=== PATIENT | female | born 1980 | race African-American/Black ===

== ENCOUNTER 2016-08-10 23:56 | Emergency (ER) | payer MEDICAID ==
--- NOTE | 2016-08-11 02:18 | ER Document Report ---
ED Flu Like - General Chief Complaint: Flu Symptoms Stated Complaint: SORE THROAT Mode of Arrival: Ambulatory Information source: Patient Notes: Pt is a 35 year old female who presents to the ER today for flu like symptoms with sore throat, fever, chills, headache, cough, congestion and body aches, nausea and vomiting for 3 days. Patient states that all of it hit her once. She denies any diarrhea. She states that the sore throat is her worst symptom. TRAVEL OUTSIDE OF THE [place] IN LAST 30 DAYS: No - Related Data Allergies/Adverse Reactions: latex [Latex] Allergy (Verified 10/16/15 15:17) thimerosal [Thimerosal] Allergy (Verified 10/16/15 15:17) promethazine HCl [From Phenergan] Adverse Reaction (Intermediate, Verified 01/08 07:38) Anger Past Medical History - General Information source: Patient - Social History Smoking Status: Former Smoker Chew tobacco use (# tins/day): No Frequency of alcohol use: Occasional Drug Abuse: None Family History: Reviewed & Not Pertinent, CVA, DM, Hypertension, Malignancy Patient has suicidal ideation: No Patient has homicidal ideation: No Renal/ Medical History: Denies: Hx Peritoneal Dialysis Musculoskeltal Medical History: Reports Hx Musculoskeletal Trauma Psychiatric Medical History: Reports: Hx Bipolar Disorder, Hx Depression Traumatic Medical History: Reports: Hx Fractures - finger Past Surgical History: Reports: Hx Appendectomy - 2001, Hx Section, Hx Gynecologic Surgery - ESure November 2008, Hx Tubal Ligation - Immunizations Immunizations up to date: Yes Hx Diphtheria, Pertussis, Tetanus Vaccination: Yes Review of Systems - Review of Systems Constitutional: See HPI EENT: See HPI Cardiovascular: No symptoms reported Respiratory: See HPI Gastrointestinal: See HPI Genitourinary: No symptoms reported Female Genitourinary: No symptoms reported Musculoskeletal: See HPI Skin: No symptoms reported Hematologic/Lymphatic: No symptoms reported Neurological/Psychological: No symptoms reported Physical Exam - Vital signs Vitals: Temp Pulse BP Pulse Ox 100.0 F 98 114/60 98 08/11/16 00:05 08/11/16 00:05 08/11/16 00:05 08/11/16 00:05 - Notes Notes: PHYSICAL EXAMINATION: GENERAL: Mildly ill-appearing, wearing mask, in no acute distress. HEAD: Atraumatic, normocephalic. EYES: Pupils equal round and reactive to light, extraocular movements intact, sclera anicteric, conjunctiva are normal. ENT: ear canals without erythema or foreign body, TMs pearly wong with good bony landmarks, nares with mucoid discharge, oropharynx erythematous without enlarged tonsils without exudates. Moist mucous membranes. NECK: Normal range of motion, supple without lymphadenopathy LUNGS: CTAB and equal. No wheezes rales or rhonchi. HEART: Regular rate and rhythm without murmurs ABDOMEN: Soft, no tenderness. No guarding, no rebound EXTREMITIES: Normal range of motion, no pitting edema. No cyanosis. NEUROLOGICAL: Cranial nerves grossly intact. Normal sensory/motor exams. PSYCH: Normal mood, normal affect. SKIN: Warm, Dry, normal turgor, no rashes or lesions noted Course - Re-evaluation Re-evalutation: 08/11/16 03:04 Influenza and strep were negative today. Patient likely has viral syndrome, I will treat her symptomatically. - Vital Signs Vital signs: Temp Pulse Resp BP Pulse Ox 99.3 F 92 20 103/62 100 08/11/16 00:45 08/11/16 00:45 08/11/16 00:45 08/11/16 00:45 08/11/16 00:45 Discharge - Discharge Clinical Impression: Viral syndrome, URI with cough and congestion Nausea and vomiting Qualifiers: Vomiting type: unspecified Vomiting Intractability: non-intractable Qualified Code(s): R11.2 - Nausea with vomiting, unspecified Condition: Stable Disposition: HOME, SELF-CARE Additional Instructions: Patient plenty of fluids! Return immediately for any new or worsening symptoms. Follow up with primary care provider, call tomorrow to make followup appointment. Prescriptions: Hydrocodone Bit/Homatropine [Hycodan Syrup 5-1.5 mg/5 ml Ud Cup] 5 ml PO Q4HP PRN #120 ml PRN Reason: Fluticasone Propionate [Flonase Nasal [place] 50 Mcg/[place] 16 gm] 2 sprays NASL Q12 #1 inhaler Ibuprofen [Motrin 800 mg Tablet] 800 mg PO Q8H PRN #30 tab PRN Reason: Nystatin/Dexameth/Diphen [Magic Mouthwash (Omh Formula) Susp] 5 ml PO QID #120 ml Ondansetron [Zofran Odt 4 mg Tablet] 1 - 2 tab PO Q4H PRN #30 tab.rapdis PRN Reason: For Nausea/Vomiting Forms: Return to Work
[2016-08-11] MEDS ORDERED: IBUPROFEN 800 MG TABLET PO ONE (03:06)
[2016-08-11] MEDS ORDERED: GUAIFENESIN/D-METHORPHAN (200-20 MG) SYRUP 10 ML PO ONE (03:06)
[2016-08-11 03:32] VITALS: BP 120/65
== END 2016-08-11 03:31 | disposition home or self-care (01) ==
LOC: ER 23:56
DX: J06.9 Acute upper respiratory infection, unspecified (principal); R05 Cough; B34.9 Viral infection, unspecified; J02.9 Acute pharyngitis, unspecified; R50.9 Fever, unspecified; J34.89 Other specified disorders of nose and nasal sinuses; R51 Headache; R11.2 Nausea with vomiting, unspecified; Z91.040 Latex allergy status; Z88.8 Allergy status to other drugs, medicaments and biological substances; Z87.891 Personal history of nicotine dependence
CPT/HCPCS: 87070; 87804; 87880; 99283

== ENCOUNTER 2017-05-15 02:29 | Emergency (ER) | payer MEDICAID ==
[2017-05-15] MEDS ORDERED: ASPIRIN 81 MG TABLET, CHEWABLE PO ONE (03:10)
[2017-05-15] MEDS ORDERED: NORMAL SALINE 1000 ML 1,000 ML IV ONE (03:11)
--- NOTE | 2017-05-15 03:13 | ER Document Report ---
ED Cardiac - General Chief Complaint: anxious Stated Complaint: RAPID HEART RATE Time Seen by Provider: 05/15/17 03:03 Mode of Arrival: Ambulatory Information source: Patient Notes: Patient presents complaining of feeling like her heart is racing that started around 1030 this evening. Patient complains of some chest tightness. Patient denies any cough, fever or recent illness. Patient denies any urinary symptoms , nausea, vomiting or diarrhea. Patient does complain of mild headache pain. Patient denies any recent travel, bedrest remobilization. Patient denies any new medications or [id number] medications. TRAVEL OUTSIDE OF THE [place] IN LAST 30 DAYS: No - HPI Patient complains to provider of: Chest tightness, Palpitations Is the pain a: New problem Quality of pain: Tightness Pain level currently: 2 Chest pain precipitating factors: At Rest Cardiac risk factors: Smoker. denies: Diabetes, Hypertension, Hx ME Positive cardiac history: No Associated symptoms: Headache, Palpitations. denies: Abdominal pain, Back pain Exacerbated by: Denies Relieved by: Nothing Similar symptoms previously: No Recently seen / treated by doctor: No - Related Data Allergies/Adverse Reactions: latex [Latex] Allergy (Verified 10/16/15 15:17) thimerosal [Thimerosal] Allergy (Verified 10/16/15 15:17) promethazine HCl [From Phenergan] Adverse Reaction (Intermediate, Verified 01/08 07:38) Anger Past Medical History - General Information source: Patient - Social History Smoking Status: Current Some Day Smoker Frequency of alcohol use: Occasional Drug Abuse: Marijuana Occupation: [employer] Family History: Reviewed & Not Pertinent, CVA, DM, Hypertension, Malignancy Patient has suicidal ideation: No Patient has homicidal ideation: No Renal/ Medical History: Denies: Hx Peritoneal Dialysis Musculoskeltal Medical History: Reports Hx Musculoskeletal Trauma Psychiatric Medical History: Reports: Hx Bipolar Disorder, Hx Depression Traumatic Medical History: Reports: Hx Fractures - finger Past Surgical History: Reports: Hx Appendectomy - 2001, Hx Section, Hx Gynecologic Surgery - ESure November 2008, Hx Tubal Ligation - Immunizations Immunizations up to date: Yes Hx Diphtheria, Pertussis, Tetanus Vaccination: Yes Review of Systems - Review of Systems Constitutional: No symptoms reported. denies: Fever, Recent illness EENT: No symptoms reported Cardiovascular: Chest pain, Palpitations Respiratory: No symptoms reported. denies: Cough, Short of breath Gastrointestinal: No symptoms reported. denies: Abdominal pain, Diarrhea, Nausea, Vomiting Genitourinary: No symptoms reported. denies: Dysuria, Flank pain Female Genitourinary: No symptoms reported. denies: Musculoskeletal: No symptoms reported. denies: Back pain Skin: No symptoms reported Hematologic/Lymphatic: No symptoms reported Neurological/Psychological: Headaches Physical Exam - Vital signs Vitals: Temp Pulse Resp BP Pulse Ox 98.7 F 118 H 24 H 158/88 H 100 05/15/17 02:42 05/15/17 02:42 05/15/17 02:42 05/15/17 02:42 05/15/17 02:42 - General General appearance: Alert, Anxious In distress: None - HEENT Head: Normocephalic, Atraumatic Eyes: Normal Conjunctiva: Normal Nasal: Normal Mouth/Lips: Normal Mucous membranes: Normal Pharynx: Normal Neck: Normal, Supple. No: Lymphadenopathy, Thyromegally - Respiratory Respiratory status: No respiratory distress Chest status: Tender Breath sounds: Normal Chest palpation: Tender - Cardiovascular Rhythm: Tachycardia Heart sounds: S1 appreciated, S2 appreciated Murmur: No - Abdominal Inspection: Normal Distension: No distension Tenderness: Nontender - Back Back: Normal, Nontender. No: CVA tenderness, Vertebra tenderness - Extremities General upper extremity: Normal inspection, Nontender, Normal ROM General lower extremity: Normal inspection, Nontender, Normal ROM - Neurological Neuro grossly intact: Yes Cognition: Normal [place] Coma Scale Eye Opening: Spontaneous [place] Coma Scale Verbal: Oriented [place] Coma Scale Motor: Obeys Commands [place] Coma Scale Total: 15 - Psychological Associated symptoms: Anxious - Skin Skin Temperature: Warm Skin Moisture: Dry Skin Color: Normal Course - Re-evaluation Re-evalutation: 05/15/17 04:20 Patient reports that chest tightness symptoms have resolved. Patient tachycardia resolved as well. Patient does continue to complain of mild headache, medication ordered. 05/15/17 05:20 Patient's heart rate continues in the 70s. Patient denies any chest tightness or palpitations at this time. Patient also reports that headache pain has resolved as well. No concern for PE at this time as patient's tachycardia resolved, patient has not been hypoxic during visit. Patient is not on any exogenous hormones denies any history of PE or DVT in the past. Patient denies any recent travel, bedrest remobilization. Patient's initial presentation she had appeared very anxious, patient visibly more calm on exam. Suspect that patient's chest tightness and palpitation symptoms could be related to anxiety. The patient has atypical chest pain as the patient's chest pain is not suggestive of pulmonary embolus, cardiac ischemia, aortic dissection, or other serious etiology. Given the extremely low risk of these diagnoses for the test in evaluation for these possibilities does not appear to be indicated at this time. Patient has been instructed to return if the symptoms worsen or change in any way. HEART score 1 (risk factor-smoking). Consulted with Dr. Adams regarding patient presentation, reviewed patient's diagnostic test results as well as EKG, agrees with discharge plan of care. 05/15/17 05:23 - Vital Signs Vital signs: Temp Pulse Resp BP Pulse Ox 98.7 F 118 H 13 119/76 100 05/15/17 02:42 05/15/17 02:42 05/15/17 05:30 05/15/17 05:30 05/15/17 05:30 - Laboratory Result Diagrams: 05/15/17 03:29 05/15/17 03:29 Laboratory results interpreted by me: 05/15/17 05/15/17 03:29 03:29 Chloride 108 H Carbon Dioxide 21 L Urine Blood SMALL H Labs- Entire Visit 05/15/17 05/15/17 05/15/17 03:29 03:29 03:29 WBC 7.4 RBC 4.24 Hgb 13.7 Hct 39.8 MCV 94 MCH 32.3 MCHC 34.4 RDW 13.9 Plt Count 242 Seg Neutrophils % 53.9 Lymphocytes % 37.3 Monocytes % 7.6 Eosinophils % 0.4 Basophils % 0.8 Absolute Neutrophils 4.0 Absolute Lymphocytes 2.8 Absolute Monocytes 0.6 Absolute Eosinophils 0.0 Absolute Basophils 0.1 Sodium 143.9 Potassium 3.9 Chloride 108 H Carbon Dioxide 21 L Anion Gap 15 BUN 11 Creatinine 0.62 Est GFR ( Amer) > 60 Est GFR (Non-Af Amer) > 60 Glucose 95 Calcium 9.8 Magnesium 1.6 Total Bilirubin 0.3 Direct Bilirubin 0.2 Indirect Bilirubin Not Reportable Neonat Total Bilirubin Not Reportable AST 22 ALT 31 Alkaline Phosphatase 61 Creatine Kinase 36 CK-MB (CK-2) < 0.22 Troponin I < 0.012 Total Protein 7.1 Albumin 4.3 TSH Serum HCG, Qual Urine Color Urine Appearance Urine pH Ur Specific Ione Urine Protein Urine Glucose (UA) Urine Ketones Urine Blood Urine Nitrite Urine Bilirubin Urine Urobilinogen Ur Leukocyte Esterase Urine WBC (Auto) Urine RBC (Auto) Urine Bacteria (Auto) Squamous Epi Cells Auto Amorphous Sediment Auto Urine Mucus (Auto) Urine Ascorbic Acid Urine Opiates Screen Urine Methadone Screen Ur Barbiturates Screen Ur Phencyclidine Scrn Ur Amphetamines Screen U Benzodiazepines Scrn Urine Cocaine Screen U Marijuana (THC) Screen 05/15/17 05/15/17 05/15/17 03:29 03:29 03:29 WBC RBC Hgb Hct MCV MCH MCHC RDW Plt Count Seg Neutrophils % Lymphocytes % Monocytes % Eosinophils % Basophils % Absolute Neutrophils Absolute Lymphocytes Absolute Monocytes Absolute Eosinophils Absolute Basophils Sodium Potassium Chloride Carbon Dioxide Anion Gap BUN Creatinine Est GFR ( Amer) Est GFR (Non-Af Amer) Glucose Calcium Magnesium Total Bilirubin Direct Bilirubin Indirect Bilirubin Neonat Total Bilirubin AST ALT Alkaline Phosphatase Creatine Kinase CK-MB (CK-2) Troponin I Total Protein Albumin TSH 3.29 Serum HCG, Qual NEGATIVE Urine Color YELLOW Urine Appearance HAZY Urine pH 6.0 Ur Specific Ione 1.011 Urine Protein NEGATIVE Urine Glucose (UA) NEGATIVE Urine Ketones NEGATIVE Urine Blood SMALL H Urine Nitrite NEGATIVE Urine Bilirubin NEGATIVE Urine Urobilinogen NEGATIVE Ur Leukocyte Esterase NEGATIVE Urine WBC (Auto) 1 Urine RBC (Auto) 4 Urine Bacteria (Auto) TRACE Squamous Epi Cells Auto 2 Amorphous Sediment Auto TRACE Urine Mucus (Auto) RARE Urine Ascorbic Acid NEGATIVE Urine Opiates Screen Urine Methadone Screen Ur Barbiturates Screen Ur Phencyclidine Scrn Ur Amphetamines Screen U Benzodiazepines Scrn Urine Cocaine Screen U Marijuana (THC) Screen 05/15/17 03:29 WBC RBC Hgb Hct MCV MCH MCHC RDW Plt Count Seg Neutrophils % Lymphocytes % Monocytes % Eosinophils % Basophils % Absolute Neutrophils Absolute Lymphocytes Absolute Monocytes Absolute Eosinophils Absolute Basophils Sodium Potassium Chloride Carbon Dioxide Anion Gap BUN Creatinine Est GFR ( Amer) Est GFR (Non-Af Amer) Glucose Calcium Magnesium Total Bilirubin Direct Bilirubin Indirect Bilirubin Neonat Total Bilirubin AST ALT Alkaline Phosphatase Creatine Kinase CK-MB (CK-2) Troponin I Total Protein Albumin TSH Serum HCG, Qual Urine Color Urine Appearance Urine pH Ur Specific Ione Urine Protein Urine Glucose (UA) Urine Ketones Urine Blood Urine Nitrite Urine Bilirubin Urine Urobilinogen Ur Leukocyte Esterase Urine WBC (Auto) Urine RBC (Auto) Urine Bacteria (Auto) Squamous Epi Cells Auto Amorphous Sediment Auto Urine Mucus (Auto) Urine Ascorbic Acid Urine Opiates Screen NEGATIVE Urine Methadone Screen NEGATIVE Ur Barbiturates Screen NEGATIVE Ur Phencyclidine Scrn NEGATIVE Ur Amphetamines Screen NEGATIVE U Benzodiazepines Scrn NEGATIVE Urine Cocaine Screen NEGATIVE U Marijuana (THC) Screen UNCONFIRMED POSITIVE - Diagnostic Test Radiology reviewed: Reports reviewed Discharge - Discharge Clinical Impression: Palpitations, Chest tightness Headache Qualifiers: Headache type: unspecified Headache chronicity pattern: unspecified pattern Intractability: not intractable Qualified Code(s): R51 - Headache Condition: Stable Disposition: HOME, SELF-CARE Instructions: Chest Pain of Unclear Cause ([facility]), Headache ([facility]), Palpitations ( Irregular or Rapid Heartrate) ([facility]) Additional Instructions: Return immediately for any new or worsening symptoms Followup with your primary care provider, call tomorrow to make a followup appointment 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 Referrals: OCTAVIO RITTER, PROPERTY AND EQUIPMENT CLERK-C [Primary Care Provider] - Follow up tomorrow FARHANA COURTNEY MD [ACTIVE STAFF] - Follow up tomorrow
[2017-05-15 03:47] LABS: ABSOLUTE BASOPHILS # (AUTO) 0.1 10^3/uL (0.0-0.2); ABSOLUTE LYMPHOCYTES (AUTO) 2.8 10^3/uL (0.5-4.7); ABSOLUTE MONOCYTES (AUTO) 0.6 10^3/uL (0.1-1.4); BASOPHILS % (AUTO) 0.8 % (0-2); EOSINOPHILS % (AUTO) 0.4 % (0-6); HEMATOCRIT 39.8 % (36.0-47.0); HEMOGLOBIN 13.7 g/dL (12.0-15.5); HGB HCT DIFFERENCE 1.3; LYMPHOCYTES % (AUTO) 37.3 % (13-45); MEAN CORPUSCULAR HEMOGLOBIN 32.3 pg (27.0-33.4); MEAN CORPUSCULAR HGB CONC 34.4 g/dL (32.0-36.0); MEAN CORPUSCULAR VOLUME 94 fl (80-97); MONOCYTES % (AUTO) 7.6 % (3-13); RED BLOOD COUNT 4.24 10^6/uL (3.72-5.28); RED CELL DISTRIBUTION WIDTH 13.9 % (11.5-14.0); SEGMENTED NEUTROPHILS % (AUTO) 53.9 % (42-78); WHITE BLOOD COUNT 7.4 10^3/uL (4.0-10.5)
[2017-05-15 03:57] LABS: AMORPHOUS SEDIMENT,URINE TRACE /HPF; BILIRUBIN,URINE NEGATIVE (NEGATIVE); GLUCOSE, URINE NEGATIVE (NEGATIVE); KETONES,URINE NEGATIVE (NEGATIVE); LEUKOCYTE ESTERASE,URINE NEGATIVE (NEGATIVE); NITRITE,URINE NEGATIVE (NEGATIVE); PROTEIN,URINE NEGATIVE (NEGATIVE); URINE SPECIFIC GRAVITY 1.011; UROBILINOGEN,URINE NEGATIVE mg/dL (<2.0)
[2017-05-15 03:59] LABS: APPEARANCE,URINE HAZY
[2017-05-15 04:03] LABS: URINE BARBITURATES SCREEN NEGATIVE; URINE METHADONE SCREEN NEGATIVE; URINE OPIATES LOW NEGATIVE; URINE PHENCYCLIDINE SCREEN NEGATIVE
[2017-05-15 04:13] LABS: ALANINE AMINOTRANSFERASE 31 U/L (9-52); ALBUMIN 4.3 g/dL (3.5-5.0); ALKALINE PHOSPHATASE 61 U/L (38-126); ANION GAP 15 (5-19); ASPARTATE AMINO TRANSFERASE 22 U/L (14-36); BILIRUBIN,DIRECT 0.2 mg/dL (0.0-0.4); BILIRUBIN,TOTAL 0.3 mg/dL (0.2-1.3); BLOOD UREA NITROGEN 11 mg/dL (7-20); CALCIUM 9.8 mg/dL (8.4-10.2); CARBON DIOXIDE 21 mmol/L (22-30); CHLORIDE 108 mmol/L (98-107); CREATINE KINASE 36 U/L (30-135); CREATININE RESULT 0.62 mg/dL (0.52-1.25); GLUCOSE 95 mg/dL (75-110); MAGNESIUM 1.6 mg/dL (1.6-2.3); POTASSIUM 3.9 mmol/L (3.6-5.0); SODIUM 143.9 mmol/L (137-145); TOTAL PROTEIN 7.1 g/dL (6.3-8.2)
--- NOTE | 2017-05-15 04:20 | RADIOLOGY REPORT (SQ) ---
EXAM DESCRIPTION: CHEST PA/LAT COMPLETED DATE/TIME: 05/15/2017 4:08 am REASON FOR STUDY: rapid HR, cp COMPARISON: 10/16/2015. EXAM PARAMETERS: NUMBER OF VIEWS: two views TECHNIQUE: Digital Frontal and Lateral radiographic views of the chest acquired. RADIATION DOSE: NA LIMITATIONS: none FINDINGS: LUNGS AND PLEURA: No opacities, masses or pneumothorax. No pleural effusion. MEDIASTINUM AND HILAR STRUCTURES: No masses or contour abnormalities. HEART AND VASCULAR STRUCTURES: Heart normal size. No evidence for failure. BONES: No acute findings. HARDWARE: None in the chest. OTHER: No other significant finding. IMPRESSION: NO SIGNIFICANT RADIOGRAPHIC FINDING IN THE CHEST. TECHNICAL DOCUMENTATION: JOB ID: [id number] [employer]- All Rights Reserved
[2017-05-15] MEDS ORDERED: KETOROLAC TROMETHAMINE INJ/PF 30 MG/1 ML SDV IV ONE (04:21)
[2017-05-15 04:24] LABS: CREATINE KINASE MB < 0.22 ng/mL (<4.55)
[2017-05-15 04:27] LABS: TROPONIN I < 0.012 ng/mL
[2017-05-15 05:32] VITALS: BP 119/76
--- NOTE | 2017-05-15 09:39 | EKG REPORT ---
SEVERITY:- BORDERLINE ECG - SINUS RHYTHM PROBABLE LEFT ATRIAL ABNORMALITY : Confirmed by: Taty Armijo 15-May-2017 09:39:03
== END 2017-05-15 05:34 | disposition home or self-care (01) ==
LOC: ER 02:29
DX: F41.9 Anxiety disorder, unspecified (principal); R00.2 Palpitations; F17.200 Nicotine dependence, unspecified, uncomplicated; Z91.040 Latex allergy status; Z98.51 Tubal ligation status
CPT/HCPCS: 93005; 99285; 96361; 96374; 36415; 82553; 82550; 83735; 84443; 84703; 85025; 80053; 81001; 84484; 80307; 71020; 93010; J1885; J7030

== ENCOUNTER 2018-08-03 09:31 | Emergency (ER) | payer SELFPAY ==
[2018-08-03] MEDS ORDERED: NORMAL SALINE 1000 ML 1,000 ML IV ONE (09:53)
[2018-08-03] MEDS ORDERED: ONDANSETRON HCL INJ/PF 4 MG/2 ML SDV IV ONE (09:54)
[2018-08-03] MEDS ORDERED: MORPHINE SULFATE 10 MG/ML INJ IV ONE (09:54)
[2018-08-03 10:27] LABS: ABSOLUTE EOSINOPHILS # (AUTO) 0.1 10^3/uL (0.0-0.6); ABSOLUTE LYMPHOCYTES (AUTO) 1.5 10^3/uL (0.5-4.7); ABSOLUTE MONOCYTES (AUTO) 0.5 10^3/uL (0.1-1.4); ABSOLUTE NEUT (AUTO) 3.9 10^3/uL (1.7-8.2); BASOPHILS % (AUTO) 0.6 % (0-2); EOSINOPHILS % (AUTO) 1.2 % (0-6); HEMATOCRIT 32.8 % (36.0-47.0); HEMOGLOBIN 10.7 g/dL (12.0-15.5); LYMPHOCYTES % (AUTO) 24.9 % (13-45); MEAN CORPUSCULAR HEMOGLOBIN 27.8 pg (27.0-33.4); MEAN CORPUSCULAR HGB CONC 32.6 g/dL (32.0-36.0); MEAN CORPUSCULAR VOLUME 85 fl (80-97); MONOCYTES % (AUTO) 8.9 % (3-13); PLATELET COUNT 366 10^3/uL (150-450); RED BLOOD COUNT 3.86 10^6/uL (3.72-5.28); RED CELL DISTRIBUTION WIDTH 17.7 % (11.5-14.0); SEGMENTED NEUTROPHILS % (AUTO) 64.4 % (42-78); TOTAL CELLS COUNTED % (AUTO) 100 %; WHITE BLOOD COUNT 6.1 10^3/uL (4.0-10.5)
[2018-08-03 10:42] LABS: ALANINE AMINOTRANSFERASE 22 U/L (9-52); ALBUMIN 3.7 g/dL (3.5-5.0); ALKALINE PHOSPHATASE 77 U/L (38-126); ANION GAP 9 (5-19); ASPARTATE AMINO TRANSFERASE 16 U/L (14-36); BILIRUBIN,DIRECT 0.2 mg/dL (0.0-0.4); BILIRUBIN,TOTAL 0.3 mg/dL (0.2-1.3); BLOOD UREA NITROGEN 8 mg/dL (7-20); CALCIUM 8.9 mg/dL (8.4-10.2); CARBON DIOXIDE 25 mmol/L (22-30); CHLORIDE 108 mmol/L (98-107); GLUCOSE 100 mg/dL (75-110); LIPASE 71.6 U/L (23-300); POTASSIUM 4.3 mmol/L (3.6-5.0); SODIUM 142.3 mmol/L (137-145); TOTAL PROTEIN 6.3 g/dL (6.3-8.2)
--- NOTE | 2018-08-03 10:48 | RADIOLOGY REPORT (SQ) ---
EXAM DESCRIPTION: CHEST 2 VIEWS COMPLETED DATE/TIME: 08/03/2018 10:19 am REASON FOR STUDY: cp COMPARISON: 05/15/2017. EXAM PARAMETERS: NUMBER OF VIEWS: two views TECHNIQUE: Digital Frontal and Lateral radiographic views of the chest acquired. RADIATION DOSE: NA LIMITATIONS: none FINDINGS: LUNGS AND PLEURA: No opacities, masses or pneumothorax. No pleural effusion. MEDIASTINUM AND HILAR STRUCTURES: No masses or contour abnormalities. HEART AND VASCULAR STRUCTURES: Heart normal size. No evidence for failure. BONES: No acute findings. HARDWARE: None in the chest. OTHER: No other significant finding. IMPRESSION: NO ACUTE RADIOGRAPHIC FINDING IN THE CHEST. TECHNICAL DOCUMENTATION: JOB ID: [id number] [employer]- All Rights Reserved Reading location - IP/workstation name: [email or web address]
[2018-08-03 10:50] LABS: APPEARANCE,URINE CLEAR; BILIRUBIN,URINE NEGATIVE (NEGATIVE); COLOR,URINE YELLOW; GLUCOSE, URINE NEGATIVE (NEGATIVE); KETONES,URINE NEGATIVE (NEGATIVE); LEUKOCYTE ESTERASE,URINE TRACE (NEGATIVE); NITRITE,URINE NEGATIVE (NEGATIVE); PROTEIN,URINE NEGATIVE (NEGATIVE); UROBILINOGEN,URINE NEGATIVE mg/dL (<2.0)
--- NOTE | 2018-08-03 11:17 | RADIOLOGY REPORT (SQ) ---
EXAM DESCRIPTION: U/S ABDOMEN LIMITED W/O DOP COMPLETED DATE/TIME: 08/03/2018 10:59 am REASON FOR STUDY: upper abdominal pain r/o gb disease COMPARISON: None. TECHNIQUE: Dynamic and static grayscale images acquired of the abdomen and recorded on PACS. Additio nal selected color Doppler and spectral images recorded. LIMITATIONS: None. FINDINGS: PANCREAS: Midline pancreas unremarkable LIVER: No masses. Echotexture normal. LIVER VASCULATURE: Normal directional flow of the main portal vein and hepatic veins. GALLBLADDER: No stones. Normal wall thickness. No pericholecystic fluid. ULTRASOUND-DETECTED ENNIS'S SIGN: Negative. INTRAHEPATIC DUCTS AND COMMON DUCT: CBD and intrahepatic ducts normal caliber. No filling defects. INFERIOR VENA CAVA: Normal flow. AORTA: No aneurysm. RIGHT KIDNEY: Normal size. Normal echogenicity. No solid or suspicious masses. No hydronephrosis. No calcifications. PERITONEAL AND RIGHT PLEURAL SPACE: No ascites or effusions. OTHER: No other significant findings. IMPRESSION: NORMAL RIGHT UPPER QUADRANT ULTRASOUND. TECHNICAL DOCUMENTATION: JOB ID: [id number] [employer]- All Rights Reserved Reading location - IP/workstation name: [email or web address]
[2018-08-03] MEDS ORDERED: HYDROMORPHONE HCL INJ/PF 2 MG/ML AMPULE IV ONE (12:22)
--- NOTE | 2018-08-03 14:42 | RADIOLOGY REPORT (SQ) ---
EXAM DESCRIPTION: U/S NON OB PEL TV W/DOPPLER COMPLETED DATE/TIME: 08/03/2018 2:23 pm REASON FOR STUDY: low abd pain, eval ovaries/pelvis COMPARISON: None. TECHNIQUE: Dynamic and static grayscale images acquired of the pelvis via transvaginal approach and recorded on PACS. Additional selected color Doppler and spectral images recorded. LIMITATIONS: None. FINDINGS: UTERUS: Contour normal. No mass. ENDOMETRIAL STRIPE: No focal or generalized thickening. No masses. CERVIX: Small nabothian cysts. RIGHT OVARY AND DOPPLER: Normal size. No worrisome masses. Normal arterial vascular flow without evid ence for torsion. LEFT OVARY AND DOPPLER: Normal size. No worrisome masses. Normal arterial vascular flow without evide nce for torsion. FREE FLUID: None noted. OTHER: No other significant finding. MEASUREMENTS: UTERUS: 5.3 x 7.2 x 10.7 cm. ENDOMETRIAL STRIPE: 6 mm. RIGHT OVARY: 1.5 x 2.3 x 2.9 cm. LEFT OVARY: 1.5 x 2.9 x 3.0 cm. IMPRESSION: NORMAL TRANSVAGINAL PELVIC ULTRASOUND. TECHNICAL DOCUMENTATION: JOB ID: [id number] [employer]- All Rights Reserved Rev-12/01 Reading location - IP/workstation name: [email or web address]
--- NOTE | 2018-08-03 15:28 | ER Document Report ---
ED GI/ - General Chief Complaint: Chest Pain > 30 Stated Complaint: CHEST PAIN Time Seen by Provider: 08/03/18 09:53 Primary Care Provider: TAMARA BREAUX MD [EMERITUS] - Follow up as needed Mode of Arrival: Ambulatory Information source: Patient Notes: Patient is a 37-year-old female who presents to the emergency department with chief complaint of right upper and lower quadrant abdominal pain. She reports mild nausea without vomiting or diarrhea. She reports she has a history of an appendectomy. She denies any abnormal discharge or fevers. She states her pain has been intermittent over the last month. TRAVEL OUTSIDE OF THE [place] IN LAST 30 DAYS: No - Related Data Allergies/Adverse Reactions: latex [Latex] Allergy (Verified 08/03/18 09:31) thimerosal [Thimerosal] Allergy (Verified 08/03/18 09:31) promethazine HCl [From Phenergan] Adverse Reaction (Intermediate, Verified 08/03/18 09:31) Anger Past Medical History - General Information source: Patient - Social History Smoking Status: Never Smoker Frequency of alcohol use: Occasional Drug Abuse: Marijuana Family History: Reviewed & Not Pertinent, CVA, DM, Hypertension, Malignancy Patient has suicidal ideation: No Patient has homicidal ideation: No - Medical History Medical History: Negative Renal/ Medical History: Denies: Hx Peritoneal Dialysis Musculoskeletal Medical History: Reports Hx Musculoskeletal Trauma Psychiatric Medical History: Reports: Hx Bipolar Disorder, Hx Depression Traumatic Medical History: Reports: Hx Fractures - finger Past Surgical History: Reports: Hx Appendectomy - 2001, Hx Section, Hx Gynecologic Surgery - [facility] November 2008, Hx Tubal Ligation - Immunizations Immunizations up to date: Yes Hx Diphtheria, Pertussis, Tetanus Vaccination: Yes Review of Systems - Review of Systems Constitutional: No symptoms reported EENT: No symptoms reported Cardiovascular: No symptoms reported Respiratory: No symptoms reported Gastrointestinal: Abdominal pain, Nausea Genitourinary: No symptoms reported Female Genitourinary: No symptoms reported Musculoskeletal: No symptoms reported Skin: No symptoms reported Hematologic/Lymphatic: No symptoms reported Neurological/Psychological: No symptoms reported Physical Exam - Vital signs Vitals: Temp Pulse Resp BP Pulse Ox 98.4 F 80 16 120/72 100 08/03/18 09:40 08/03/18 09:40 08/03/18 09:40 08/03/18 09:40 08/03/18 09:40 - Notes Notes: PHYSICAL EXAMINATION: GENERAL: Well-appearing, well-nourished and in no acute distress. HEAD: Atraumatic, normocephalic. EYES: Pupils equal round and reactive to light, extraocular movements intact, conjunctiva are normal. ENT: Nares patent, oropharynx clear without exudates. Moist mucous membranes. NECK: Normal range of motion, supple without lymphadenopathy LUNGS: Breath sounds clear to auscultation bilaterally and equal. No wheezes rales or rhonchi. HEART: Regular rate and rhythm without murmurs ABDOMEN: Soft, mildly tender to the right upper and lower quadrants, nondistended abdomen. No guarding, no rebound. No masses appreciated. Female : No CVA tenderness Musculoskeletal: Normal range of motion, no pitting or edema. No cyanosis. NEUROLOGICAL: Cranial nerves grossly intact. Normal speech, normal gait. Normal sensory, motor exams PSYCH: Normal mood, normal affect. SKIN: Warm, Dry, normal turgor, no rashes or lesions noted. Course - Re-evaluation Re-evalutation: EKG reveals a normal sinus rhythm, rate of 80, normal axis, no ST segment elevations or depressions. Right upper quadrant ultrasound is unremarkable. CBC and CMP are unremarkable. Normal lipase. We will send patient for a transv aginal ultrasound as patient does have some right lower quadrant/pelvic pain. Pelvic ultrasound is unremarkable. HCG is negative. Urinalysis reveals moderate hematuria. Patient does report she just finished her menstrual cycle. Vital signs have been within normal limits. Patient reports she feels much better after administration of IV fluids, pain medications and antiemetics. Patient will be discharged home with strict ED return precautions. - Vital Signs Vital signs: Temp Pulse Resp BP Pulse Ox 98.4 F 80 20 120/72 100 08/03/18 09:40 08/03/18 09:40 08/03/18 15:00 08/03/18 15:00 08/03/18 15:00 - Laboratory Result Diagrams: 08/03/18 10:08 08/03/18 10:08 Laboratory results interpreted by me: 08/03/18 08/03/18 08/03/18 10:08 10:08 10:25 Hgb 10.7 L Hct 32.8 L RDW 17.7 H Chloride 108 H Urine Blood MODERATE H Ur Leukocyte Esterase TRACE H Discharge - Discharge Clinical Impression: Abdominal pain Qualifiers: Abdominal location: generalized Qualified Code(s): R10.84 - Generalized abdominal pain Condition: Stable Disposition: HOME, SELF-CARE Additional Instructions: Abdominal Pain There are many causes of abdominal pain. Pain can mean a serious problem requiring surgery (such as appendicitis). It can also be an innocent problem that goes away on its own (such as a viral infection). Often, time must pass to determine the cause of pain. The physician does not feel that hospitalization is necessary, at present. Things may change within the next 24 hours. Call the doctor or come back for re-examination if any problems occur, such as: (1) Pain that becomes more severe, steady, or becomes concentrated in one specific area. Also, pain that is more severe with movement or coughing. (2) Vomiting that persists or becomes more frequent. (3) Blood in the vomitus, urine, or bowel movements. Blood in the stool may have a tarry or black appearance. (4) Shaking chills or fever greater than 100 degrees F. (5) The abdomen becomes more distended or swollen. (6) Bowel movements cease. (7) Failure to improve as expected. Your lab work and ultrasounds were normal today. I have enclosed a copy of your results for you to take your primary doctor. Please return to the emergency department if you develop any of the above symptoms. In the meanwhile please try taking the Bentyl for your abdominal pain as prescribed on the bottle. Prescriptions: Dicyclomine HCl [Bentyl 20 mg Tablet] 20 mg PO QID #40 tablet Forms: Return to Work Referrals: TAMARA BREAUX MD [EMERITUS] - Follow up as needed
[2018-08-03 15:42] VITALS: BP 120/72
--- NOTE | 2018-08-03 20:49 | EKG REPORT ---
SEVERITY:- NORMAL ECG - SINUS RHYTHM : Confirmed by: Taty Armijo 03-Aug-2018 20:48:47
== END 2018-08-03 15:50 | disposition home or self-care (01) ==
LOC: ER 09:31
DX: R10.84 Generalized abdominal pain (principal); R10.811 Right upper quadrant abdominal tenderness; R10.813 Right lower quadrant abdominal tenderness; R31.9 Hematuria, unspecified; R11.0 Nausea; F12.10 Cannabis abuse, uncomplicated; Z90.49 Acquired absence of other specified parts of digestive tract; Z98.51 Tubal ligation status
CPT/HCPCS: 93005; 99284; 36415; 84702; 83690; 85025; 80053; 81001; 71046; 76705; 76830; 93976; 93010; J2270; J1170; J2405; J7030